=== PATIENT | female | born 1940 | race Caucasian/White ===

== ENCOUNTER 2017-10-30 10:24 | Observation (INO) ==
[2017-10-30] MEDS ORDERED: SODIUM CHLORIDE 0.9% 1,000 ML IV STA (11:03)
[2017-10-30 11:15] LABS: Basophils % 0.2 % (0.0-0.8); Hemoglobin 14.7 GM/DL (12.0-16.0); Immature Granulocytes % 0.5 %; Immature Granulocytes Absolute 0.03 #; Lymphocytes # 1.3 10*3/uL (1.4-4.0); Lymphocytes % 19.8 % (21.3-54.2); Mean Corpuscular HGB Conc 32.7 GM/DL (32-36); Mean Corpuscular Hemoglobin 31 PG (27-34); Mean Corpuscular Volume 94.7 FL (87-102); Monocytes # 0.6 10*3/uL (0.11-0.8); Monocytes % 8.6 % (1.7-12.7); Neutrophils # 4.7 10*3/uL (1.4-7.4); Neutrophils % 70.9 % (38.7-73.9); Platelet Count 145 T/CUMM (130-400); Red Blood Count 4.75 MC/CUMM (3.8-5.5); Red Cell Distribution Width 15.3 % (9.3-17.3); White Blood Count 6.6 T/CUMM (4-12)
[2017-10-30 11:43] LABS: Alanine Aminotransferase < 6 U/L (13-56); Albumin 3.7 G/DL (3.4-5.0); Alkaline Phosphatase 76 U/L (45-117); Aspartate Amino Transferase 19 U/L (0-37); Blood Urea Nitrogen 25 MG/DL (7-18); Calcium 9.9 MG/DL (8.5-10.1); Glucose 127 MG/DL (74-106); Osmolality,Calculated 288.1 MOS/KG (273-304); Potassium 4.5 MMOL/L (3.5-5.1); Sodium 142 MMOL/L (136-145); Total Protein 7.7 G/DL (6.4-8.3)
[2017-10-30] MEDS ORDERED: levETIRAcetam 500 MG/5 ML VIAL IV ONE (11:55)
[2017-10-30] MEDS ORDERED: SODIUM CHLORIDE 0.9% 100 ML IV ONE (11:55)
[2017-10-30 12:19] LABS: Apearance,Urine CLEAR (Clear); Bilirubin,Urine Negative (Negative); Blood, Urine Small mg/dL (Negative); Glucose,Urine (UA) Negative (Negative); Hyaline Casts,Urine 14 /LPF (0-3); Ketones,Urine 80 mg/dL (Negative); Mucus,Urine Few /LPF (Occasional); Nitrite,Urine Negative (Negative); Protein,Urine 100 MG/DL; RBC,Urine 2 /HPF (0-4); Squamous Epithelial Cell,Urine Occasional /HPF (0-10); Urine Color Yellow (Yellow); Urine Specific Gravity 1.019 (1.001-1.035); WBC,Urine 2 /HPF (0-6)
[2017-10-30] MEDS ORDERED: ONDANSETRON 4 MG/2 ML VIAL IV PRN (14:48)
[2017-10-30] MEDS ORDERED: SODIUM CHLORIDE 0.9% 1,000 ML IV SCH (15:00)
[2017-10-30] MEDS: CIPROFLOXACIN/DEXAMETHASONE OTIC SUSP 7.5 ML BOTTLE LEFT EAR SCH ×2 (17:59→21:57)
[2017-10-31 07:28] LABS: Basophils % 0.5 % (0.0-0.8); Eosinophils # 0.1 10*3/uL (0.0-0.87); Eosinophils % 1.9 % (0.00-10.9); Hematocrit 41.3 VOL% (35.7-47.0); Hemoglobin 13.3 GM/DL (12.0-16.0); Immature Granulocytes % 0.2 %; Immature Granulocytes Absolute 0.01 #; Lymphocytes # 1.2 10*3/uL (1.4-4.0); Lymphocytes % 29.5 % (21.3-54.2); Mean Corpuscular HGB Conc 32.2 GM/DL (32-36); Mean Corpuscular Hemoglobin 31 PG (27-34); Mean Platelet Volume 11.5 FL (9.6-12.0); Monocytes # 0.4 10*3/uL (0.11-0.8); Monocytes % 9.8 % (1.7-12.7); Neutrophils # 2.4 10*3/uL (1.4-7.4); Neutrophils % 58.1 % (38.7-73.9); Platelet Count 112 T/CUMM (130-400); Red Cell Distribution Width 15.5 % (9.3-17.3); White Blood Count 4.2 T/CUMM (4-12)
[2017-10-31 07:43] LABS: Osmolality,Calculated 293.4 MOS/KG (273-304); Potassium 3.7 MMOL/L (3.5-5.1)
[2017-10-31] MEDS: CIPROFLOXACIN/DEXAMETHASONE OTIC SUSP 7.5 ML BOTTLE LEFT EAR SCH ×2 (08:17→20:59)
[2017-10-31] MEDS: PANTOPRAZOLE 40 MG VIAL IV SCH (08:17)
[2017-10-31] MEDS: DEXTROSE 5% 1,000 ML IV SCH ×2 (09:00→22:30)
[2017-10-31] MEDS ORDERED: SKIN HEALING OINT (AQUAPHOR) 50 GM TUBE TOP PRN (13:43)
[2017-10-31] MEDS ORDERED: LORazepam 1 MG TABLET PO PRN (16:20)
[2017-10-31] MEDS ORDERED: LORazepam 2 MG/1 ML VIAL IV PRN (16:47)
[2017-11-01 08:09] VITALS: BP 113/62
[2017-11-01] MEDS: CIPROFLOXACIN/DEXAMETHASONE OTIC SUSP 7.5 ML BOTTLE LEFT EAR SCH (08:34)
[2017-11-01] MEDS: PANTOPRAZOLE 40 MG VIAL IV SCH (08:35)
== END 2017-11-01 12:00 | disposition hospice, inpatient (51) ==
LOC: EDBD → EDUNIT# → N.ED 10:24 → N.EDINP 10:24 → SUATTDRO 13:46 → N.2E 15:47
PROVIDERS: ADMIT Internal Medicine; ATTEND Internal Medicine Cardiovascular Disease

== ENCOUNTER 2021-12-23 20:46 | Inpatient (IN) ==
[2021-12-23] MEDS ORDERED: SODIUM CHLORIDE 0.9% 1,000 ML IV STA (20:59)
[2021-12-23] MEDS ORDERED: ALBUTEROL/IPRATROPIUM 3 ML NEB RESP TX STA (21:09)
[2021-12-23] MEDS ORDERED: methylPREDNISolone SOD SUC 125 MG/2 ML VIAL IV STA (21:09)
[2021-12-23 21:39] LABS: Basophils % 0.3 % (0.0-0.8); Eosinophils # 0.1 10*3/uL (0.0-0.87); Hematocrit 47.3 VOL% (35.7-47.0); Hemoglobin 15.3 GM/DL (12.0-16.0); Immature Granulocytes % 0.4 %; Immature Granulocytes Absolute 0.03 #; Lymphocytes # 1.7 10*3/uL (1.4-4.0); Lymphocytes % 21.8 % (21.3-54.2); Mean Corpuscular HGB Conc 32.3 GM/DL (32-36); Mean Corpuscular Volume 101.1 FL (87-102); Mean Platelet Volume 12.3 FL (9.6-12.0); Monocytes % 12.8 % (1.7-12.7); Neutrophils % 63.7 % (38.7-73.9); Platelet Count 145 T/CUMM (130-400); Red Blood Count 4.68 MC/CUMM (3.8-5.5); Red Cell Distribution Width 16.9 % (9.3-17.3); White Blood Count 7.7 T/CUMM (4-12)
[2021-12-23 22:05] LABS: Anisocytosis Slight; Atypical Lymphocytes Few; Band Neutrophils 4 % (0-10); Eosinophils 2 % (0-10); Lymphocytes 21 % (20-55); Platelet Estimate Normal; Total Cells Counted 100
[2021-12-23 22:19] LABS: Urine Appearance Clear (Clear); Urine Color Yellow (Yellow); Urine Specific Gravity 1.024 (1.001-1.035)
[2021-12-23 22:20] LABS: Bilirubin,Urine Negative (Negative); Blood, Urine Negative (Negative); Glucose,Urine (UA) Negative (Negative); Ketones,Urine Negative (Negative); Nitrite,Urine Negative (Negative); Protein,Urine 100 mg/dL (Negative); Urine Urobilinogen 0.2 eU/dL (<2.0)
[2021-12-23 22:22] LABS: Calcium Oxalate Crystals,Urine Occasional /HPF (Few); Mucus,Urine Occasional /LPF (Occasional); RBC,Urine 1 /HPF (0-4); Squamous Epithelial Cell,Urine Occasional /HPF (0-10)
[2021-12-23 22:24] LABS: Albumin 3.3 G/DL (3.4-5.0); Bilirubin,Total 0.6 MG/DL (0.20-1.00); Calcium 9.3 MG/DL (8.5-10.1); Osmolality,Calculated 291.4 MOS/KG (273-304); Potassium 4.6 MMOL/L (3.5-5.1); Total Protein 6.9 G/DL (6.4-8.2)
[2021-12-23] MEDS ORDERED: PIPERACILLIN/TAZOBACTAM 3,375 MG in SODIUM CHLORIDE 0.9% 100 ML IV STA (22:39)
[2021-12-23] MEDS ORDERED: LORazepam 2 MG/1 ML VIAL IV PRN (22:58)
[2021-12-23] MEDS ORDERED: PROMETHAZINE 25 MG/1 ML VIAL IM PRN (23:03)
[2021-12-23] MEDS ORDERED: NICOTINE 21 MG/24 HR PATCH TRANSDERM PRN (23:03)
[2021-12-23] MEDS ORDERED: MORPHINE 2 MG/1 ML SYRINGE IV PRN (23:03)
[2021-12-23] MEDS ORDERED: hydrALAZINE 20 MG/1 ML VIAL IV PRN (23:03)
[2021-12-23] MEDS ORDERED: GLUCAGON 1 MG VIAL IM PRN (23:03)
[2021-12-23] MEDS ORDERED: DEXTROSE 10% 250 ML BAG IV PRN (23:03)
[2021-12-23] MEDS ORDERED: ONDANSETRON 4 MG/2 ML VIAL IV PRN (23:03)
[2021-12-23] MEDS ORDERED: ACETAMINOPHEN 650 MG SUPP RECTAL PRN (23:06)
[2021-12-23 23:50] LABS: ABG Base Excess 1.6 MMOL/L (-2.5-2.5); ABG HCO3 25.8 MMOL/L (20-26); ABG Oxygen Saturation 99.7 % (95-100); ABG PCO2 44.8 MM HG (35-48); ABG PH 7.388 (7.35-7.45); ABG TCO2 23.5 MMOL/L (23-27)
[2021-12-24] MEDS: ALBUTEROL/IPRATROPIUM 3 ML NEB RESP TX SCH ×4 (00:55→19:38)
[2021-12-24] MEDS: DEXT 5% NACL 0.9% KCL 40 MEQ 40 MEQ/1,000 ML BAG IV SCH ×2 (01:40→21:47)
[2021-12-24 05:29] LABS: Calcium 8.7 MG/DL (8.5-10.1); Osmolality,Calculated 287.7 MOS/KG (273-304); Potassium 4.7 MMOL/L (3.5-5.1)
[2021-12-24 06:00] LABS: Basophils % 0.2 % (0.0-0.8); Eosinophils % 0.6 % (0.00-10.9); Hematocrit 41.6 VOL% (35.7-47.0); Hemoglobin 13.5 GM/DL (12.0-16.0); Immature Granulocytes % 0.4 %; Immature Granulocytes Absolute 0.02 #; Lymphocytes # 0.8 10*3/uL (1.4-4.0); Lymphocytes % 14.1 % (21.3-54.2); Mean Corpuscular HGB Conc 32.5 GM/DL (32-36); Mean Corpuscular Volume 99.8 FL (87-102); Mean Platelet Volume 11.8 FL (9.6-12.0); Monocytes # 0.2 10*3/uL (0.11-0.8); Monocytes % 4.3 % (1.7-12.7); Neutrophils % 80.4 % (38.7-73.9); Red Blood Count 4.17 MC/CUMM (3.8-5.5); Red Cell Distribution Width 16.3 % (9.3-17.3)
[2021-12-24 06:02] LABS: Platelet Count 90 T/CUMM (130-400); White Blood Count 5.3 T/CUMM (4-12)
[2021-12-24 06:20] LABS: Platelet Estimate Decreased
[2021-12-24] MEDS ORDERED: methylPREDNISolone SOD SUC 40 MG/1 ML VIAL IV SCH (08:00)
[2021-12-24] MEDS ORDERED: FUROSEMIDE 40 MG/4 ML VIAL IV SCH (08:00)
[2021-12-24] MEDS: HEPARIN 5,000 UNIT/1 ML VIAL SUBCUT SCH ×2 (09:28→21:48)
[2021-12-24] MEDS: PIPERACILLIN/TAZOBACTAM 3,375 MG in SODIUM CHLORIDE 0.9% 100 ML IV SCH ×2 (09:29→17:10)
[2021-12-24] MEDS: PANTOPRAZOLE 40 MG VIAL IV SCH (09:29)
[2021-12-24 17:13] VITALS: BP 146/73
[2021-12-24] MEDS: methylPREDNISolone SOD SUC 40 MG/1 ML VIAL IV SCH (21:56)
[2021-12-25] MEDS: PIPERACILLIN/TAZOBACTAM 3,375 MG in SODIUM CHLORIDE 0.9% 100 ML IV SCH ×2 (01:19→10:06)
[2021-12-25] MEDS: ALBUTEROL/IPRATROPIUM 3 ML NEB RESP TX SCH ×3 (08:40→14:39)
[2021-12-25] MEDS: HEPARIN 5,000 UNIT/1 ML VIAL SUBCUT SCH (09:50)
[2021-12-25] MEDS: DEXT 5% NACL 0.9% KCL 40 MEQ 40 MEQ/1,000 ML BAG IV SCH (10:07)
[2021-12-25] MEDS: PANTOPRAZOLE 40 MG VIAL IV SCH (10:09)
[2021-12-25] MEDS: methylPREDNISolone SOD SUC 40 MG/1 ML VIAL IV SCH (10:47)
== END 2021-12-25 15:49 | disposition swing bed (61) | DRG 177 ==
LOC: EDBD → EDUNIT# → N.ED 20:46 → N.EDINP 23:03 → N.TELEN 12-24 16:03
PROVIDERS: ADMIT Internal Medicine; ATTEND Internal Medicine